=== PATIENT | male | born 1995 | race African-American/Black ===

== ENCOUNTER 2016-10-16 09:37 | Day surgery (SDC) | payer OTHER ==
[~2016-10-16 09:37] MED LIST: BUPIVACAINE HCL 0.25 % INJ/PF (2.5 MG/1 ML) 30 ML VIAL ONE; CEFAZOLIN 2 GM/D5W RTU 2 GM/50 ML RTUPB IV PRN; FENTANYL CITRATE INJ/PF 100 MCG/2 ML AMPUL ONE; LACTATED RINGERS 1000 ML IV PRN; LIDOCAINE 0.5% INJ-PF (5 MG/ML) 50 ML SDV SUBCUT PRN; MIDAZOLAM 2 MG/2 ML INJ ONE; MORPHINE SULFATE 10 MG/ML INJ IV PRN; ONDANSETRON HCL INJ/PF 4 MG/2 ML SDV IV PRN; PROPOFOL INJ 200 MG/20 ML VIAL IV ONE
[2016-10-16] MEDS ORDERED: DEXMEDETOMIDINE INJ 80 MCG/20 ML VIAL IV ONE (10:36)
[2016-10-16] MEDS ORDERED: DIPHENHYDRAMINE HCL 50 MG/ML VIAL IV PRN (11:21)
[2016-10-16] MEDS ORDERED: FENTANYL CITRATE INJ/PF 100 MCG/2 ML AMPUL IV PRN ×3 (11:21)
[2016-10-16] MEDS ORDERED: PROMETHAZINE HCL INJ 25 MG/1 ML VIAL IV PRN (11:21)
[2016-10-16] MEDS ORDERED: MEPERIDINE HCL/PF INJ 25 MG/1 ML DISP.SYRIN IV PRN (11:21)
[2016-10-16] MEDS ORDERED: BUPIVACAINE INJ/PF LIPOSOME/PF 266 MG/20 ML SDV ONE (11:30)
--- NOTE | 2016-10-16 12:55 | Brief Operative Note ---
BRIEF OPERATIVE REPORT DATE OF SURGERY: 10/16/16 TIME OF SURGERY: 11:00 PREOPERATIVE DIAGNOSIS: right testicular lesions POSTOPERATIVE DIAGNOSIS: right benign testicular lesions SURGEON: LILLIAN SLATER FINDINGS: intraoperative ultrasound confirmed calcifications and benign appearing tunical cysts. These were removed and sent for pathologic confirmation. No intratesticular lesion. COMPLICATIONS: none ESTIMATED BLOOD LOSS: 5 TISSUE REMOVED OR ALTERED: 1. Right testicular biopsies. 2. Right appendix testis TECHNICAL PROCEDURE: 1. Right inguinal testicular biopsies. 2. Intraoperative testicular ultrasound with interpretation.
[2016-10-16] MEDS ORDERED: OXYCODONE-ACETAMINOPHEN 5-325 MG TABLET PO PRN ×2 (13:26)
--- NOTE | 2016-10-16 14:43 | OPERATIVE REPORT E ---
Operative Report NAME: VLADISLAV BROWN : 1995 AGE: 21Y DATE OF SURGERY: 10/16/2016 ROOM: PREOPERATIVE DIAGNOSIS: Right testicular lesion. POSTOPERATIVE DIAGNOSIS: Right testicular lesion. PROCEDURES PERFORMED: 1. Right inguinal testicular biopsy. 2. Intraoperative ultrasound of testis with interpretation. SURGEON: Richi Quiles M.D. ANESTHESIA: General LMA. ESTIMATED BLOOD LOSS: 5. IV FLUID: 600 mL Ringer's lactate. DRAINS, TUBES, AND LINES: None. COMPLICATIONS: None. CONDITION: Stable. SPECIMENS: 1. Right appendix testis. 2. Right testicular biopsy x2. 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 Ultrasound was inconclusive, but appeared to reveal these as tentacle cysts. Due to the uncertainty of it, he was offered surveillance versus testicular biopsy versus orchiectomy and he elected for procedures performed today. DESCRIPTION OF SURGERY: The patient was identified in the preoperative holding area. The surgery with all the intended risks and benefits were again described in detail to the patient. He confirmed this, consented to proceed, and was given Ancef 2 g. He was brought back to the operating room where general LMA anesthesia was provided. He then had genitalia and right groin shaved and he was prepped and draped in the usual sterile fashion. A surgical timeout was performed, all in agreement, and we then started the case. We started by marking the external ring and then marking out our right inguinal incision superolateral to this along Angelina's line. We marked out a 2.5 cm incision. We performed a surgical timeout, all were in agreement, and we then started. We incised the skin with a scalpel, carried dissection down with Bovie electrocautery to Camper's and Mai's fascia until we encountered the external oblique fascia. We cleared this off bluntly with Kittner's and we could see the external ring and the cord protruding from it. We then nicked the fascia and then opened the fascia for the length of the incision along the line of fascia. We then dissected the cord free underneath the fascia, grasped it with a Ozan clamp, and elevated it out of the incision. We placed a Marie around this, which we used for vascular occlusion and for traction. We then pushed the testicle from the scrotum up into the incision and we divided the gubernacular and cremasteric attachments and thus we were able to elevate the testes into the field. We draped off the field and then opened the tunica vaginalis and exposed the testis. We then visualized the testicles. There were no solid intratesticular lesions palpated. The palpable lesions, which were on the right lateral superior testicle were seen, and under direct vision, these appeared to be single cysts and epididymal cysts. A total of 4 of these were seen. We were satisfied that these appeared to be benign; however, for certainty, we did bring in an intraoperative ultrasound of the testis, which revealed no intratesticular lesions, no vascularity to these, which actually appeared to be calcifications and cysts. We, at this point, removed the appendix testis and sent this as a specimen and then on the lateral aspect of the testicle just where the epididymis was running, we excised approximately 5 mm portion, which had a advertising sales representative lesion in it and removed this with free margins. We then used the bipolar to stop bleeding inside the testis and we brought out a 5-0 Prolene stitch, which would close up the tunica over the testis. Once this was done, we saw 1 additional cyst on the proximal medial border of the testis and epididymis and this was easily excised with care to ensure that there was no contact with the epididymis at all and this was sent off as a second specimen. We were satisfied that all these lesions that were seen were indeed benign after both the visualization and ultrasound and we removed these lesions. Being satisfied with this and did not feel orchiectomy would be appropriate in this patient, so we removed the Marie and placed the testis back into the scrotum. Testis will have normal appearance with good blood flow. We placed the testis and we lifted the cord and there was no torsion of the cord. At this point, we injected Exparel into the cord and then closed the fascia with a 2-0 Vicryl stitch in a running fashion. Once this was done, we used an additional 10 mL of Exparel in the fascia and then we closed the Camper's and Mai's fascia with interrupted 3-0 Vicryl and then the deep dermal layer with interrupted 3-0 Vicryl and the skin was closed with running 4-0 Monocryl and a subcuticular stitch. We used the remaining portion of the Exparel on the skin for a total of 20 mL used. We then cleaned the patient, applied Dermabond to the incision, and then placed Fluffs for scrotal support. The patient awoke from anesthesia and transferred to the PACU in stable condition where he recovered. Will follow up based on the pathology. He will keep on convalescent leave for the next 2 weeks and will discuss next steps pending this. DICTATING PHYSICIAN: Richi Quiles MD [id number] PHY#: [id number] ID: [id number] JOB#: [id number] ACCT: [id number] cc:Richi Quiles M.D. > MTDD
[2016-10-16] MEDS ORDERED: DEXAMETHASONE SOD PHOSPHATE INJ 4 MG/1 ML VIAL ONE (14:50)
[2016-10-16] MEDS ORDERED: ONDANSETRON HCL INJ/PF 4 MG/2 ML SDV ONE (14:50)
[2016-10-16 15:02] VITALS: BP 135/80
== END 2016-10-16 14:50 | disposition home or self-care (01) ==
LOC: OROUT 09:37
PROVIDERS: ATTEND Urology
PROC: BV44ZZZ Ultrasonography of Scrotum (ICD-10-PCS; 2016-10-16)
PROC: 0VB90ZX Excision of Right Testis, Open Approach, Diagnostic (ICD-10-PCS; principal; 2016-10-16 11:30)
DX: N50.9 Disorder of male genital organs, unspecified (principal)
CPT/HCPCS: 88305 ×2; 54505; J2250; J1100; J3010; J2405; J2704; J0690; C9290; J3490; 920